=== PATIENT | male | born 1975 | race African-American/Black ===

== ENCOUNTER 2021-08-28 20:48 | Emergency (ER) | payer SELFPAY ==
[~2021-08-28] VITALS: Ht 177.8 cm; Wt 73.4 kg
[2021-08-28 20:56] VITALS: BP 127/70
== END 2021-08-28 21:43 | disposition home or self-care (01) ==
LOC: EMS 20:50
DX: F32.9 Major depressive disorder, single episode, unspecified (principal); F12.90 Cannabis use, unspecified, uncomplicated
CPT/HCPCS: 99281; Z7502